=== PATIENT | female | born 1995 | race Caucasian/White ===

== ENCOUNTER 2016-12-31 21:41 | Emergency (ER) | payer BC, MEDICAID ==
--- NOTE | 2016-12-31 21:56 | ED Physician Documentation ---
PD HPI HEAD INJURY - Stated complaint Stated Complaint: ETOH - Chief complaint Chief Complaint: Neuro - History obtained from History obtained from: Patient, Family - History of Present Illness Mechanism of head injury: Fell Where head injury occurred: Other (she was at music event with her parents and wine/alcohol was served there. Patient had several drinks after getting there, after getting off from work. Her parents did not realize how many drinks she had , but noted that the patient seemed to be acting inebriated, was wobbly walking , and then fell backward, striking back of head. Brief LOC and patient then vomited couple of times, was hard to rouse. Parents concerned between overly intoxicated and potential head injury, so brought her here for evaluation.) Timing - onset: How many hours ago (just the past 1-2 hours while at music event ), Today Quality of pain: Aching Associated symptoms: LOC, Nausea / vomiting Symptoms worsen with: Palpation Contributing factors: Intoxicated. No: Anticoagulated Similar symptoms before: Has not had sx before (parents and patient say she has not had more than a drink or two since turning 21. This was first time she had had several drinks.) Recently seen: Not recently seen Review of Systems Constitutional: denies: Fever Nose: denies: Rhinorrhea / runny nose, Congestion Throat: denies: Sore throat Respiratory: denies: Cough GI: denies: Diarrhea Skin: denies: Abrasion (s), Laceration (s) Musculoskeletal: denies: Neck pain, Back pain Neurologic: denies: Focal weakness PD PAST MEDICAL HISTORY - Past Medical History Neuro: None Endocrine/Autoimmune: None - Present Medications Home Medications: Ambulatory Orders Medication Instructions Recorded Confirmed No Known Home Medications [No 12/31/16 12/31/16 Known Home Medications] - Allergies Allergies/Adverse Reactions: Allergies Allergy/AdvReac Type Severity Reaction Status Date / Time No Known Drug Allergies Allergy Verified 12/31/16 21:55 PD ED PE NORMAL - Vitals Vital signs reviewed: Yes - General General: Alert and oriented X 3, Well developed/nourished - HEENT HEENT: Pharynx benign, Dentition benign, Other (mild tenderness back of head without swelling nor deformity) - Neck Neck: Supple, no meningeal sign, No adenopathy - Cardiac Cardiac: RRR, No murmur - Respiratory Respiratory: Clear bilaterally - Abdomen Abdomen: Soft, Non tender - Back Back: No spinal TTP - Derm Derm: Normal color, Warm and dry - Extremities Extremities: No tenderness to palpate, Normal ROM s pain - Neuro Neuro: distributor operator 2-12 intact, No motor deficit, Other (slurred speech. Rousable to tactile stimulus. Able to follow commands but rather incoordinate. ) Results - Vitals Vitals: Vital Signs - 24 hr 12/31/16 12/31/16 12/31/16 21:53 21:59 22:56 Temperature 36.0 C L 36.9 C Heart Rate 92 61 88 Respiratory 18 16 15 Rate Blood Pressure 130/88 H 107/73 108/69 O2 Saturation 100 100 100 Oxygen O2 Source Room air - Labs Labs: Laboratory Tests 12/31/16 22:17 Sodium 140 Potassium 3.4 L Chloride 108 Carbon Dioxide 23 Anion Gap 9.0 BUN 10 Creatinine 0.6 Estimated GFR (MDRD) 126 Glucose 94 Calcium 8.9 Total Bilirubin 0.2 AST 16 ALT 13 Alkaline Phosphatase 47 Total Protein 7.2 Albumin 4.1 Globulin 3.1 Albumin/Globulin Ratio 1.3 Lipase 22 Ethyl Alcohol 269.1 - Rads (name of study) head CT Radiology: Prelim report reviewed (no acute process. ) PD MEDICAL DECISION MAKING - ED course Complexity details: reviewed results, re-evaluated patient (well intoxicated initially but improves to rousable and conversant while in the ED (still inebriated) but parents feel comfortable having her home and she prefers home to sleep. She seems to be past the peak of inebriation and would not expect impaired gag reflex/etc from this point. ), considered differential, d/w patient , d/w family (parents) Departure - Departure Disposition: 01 Home, Self Care Clinical Impression: Accidental fall Qualifiers: Encounter type: initial encounter Qualified Code(s): W19.XXXA - Unspecified fall, initial encounter Head contusion Qualifiers: Encounter type: initial encounter Contusion of head detail: scalp Qualified Code(s): S00.03XA - Contusion of scalp, initial encounter Alcohol intoxication Qualifiers: Complication of substance-induced condition: uncomplicated Qualified Code(s): F10.120 - Alcohol abuse with intoxication, uncomplicated Condition: Stable Record reviewed to determine appropriate education?: Yes Instructions: ED Alcohol Intoxication, ED Contusion Scalp Comments: Drink lots of fluids the next day or 2. Tylenol or ibuprofen if needed for pains. If you have some lightheadedness or headache over the next couple of days, that might be from hitting her head/mild concussion. This should clear over a few days. Recheck if not better over the next several days. Avoid excess alcohol. Discharge Date/Time: 12/31/16 23:38
[2016-12-31] MEDS ORDERED: SODIUM CHLORIDE 0.9% 1,000 ML IV ONE (22:09)
[2016-12-31] MEDS ORDERED: ONDANSETRON 4 MG/2 ML VIAL IVP STA (22:09)
[2016-12-31] MEDS ORDERED: KETOROLAC 60 MG/2 ML VIAL IVP STA (22:09)
[2016-12-31] MEDS ORDERED: KETOROLAC 30 MG/ML VIAL ONE (22:23)
[2016-12-31] MEDS ORDERED: ONDANSETRON 4 MG/2 ML VIAL ONE (22:23)
[2016-12-31] MEDS ORDERED: SODIUM CHLORIDE FLUSH 0.9% 10 ML SYRINGE IVP ONE (22:23)
[2016-12-31 22:39] LABS: ALBUMIN/GLOBULIN RATIO 1.3 (1.0-2.2); BILIRUBIN,TOTAL 0.2 mg/dL (0.2-1.0); CALCIUM 8.9 mg/dL (8.5-10.3); CREATININE 0.6 mg/dL (0.4-1.0); POTASSIUM 3.4 mmol/L (3.5-5.0); TOTAL PROTEIN 7.2 g/dL (6.7-8.2)
[2016-12-31 22:57] VITALS: BP 108/69
--- NOTE | 2016-12-31 23:04 | CT Preliminary Report ---
Exam: CT Head W/O IMPRESSION: Normal head CT. [facility] SITE ID: [id number]
--- NOTE | 2016-12-31 23:07 | CT Report ---
EXAM: CT HEAD EXAM DATE: 12/31/2016 10:51 PM. CLINICAL HISTORY: Fell and hit back of head. COMPARISON: None. TECHNIQUE: Multiaxial CT images were obtained from the foramen magnum to the vertex. IV contrast: Non e. Reformats: Coronal. In accordance with CT protocol optimization, one or more of the following dose reduction techniques w ere utilized for this exam: automated exposure control, adjustment of mA and/or KV based on patient s ize, or use of iterative reconstructive technique. FINDINGS: Parenchyma: No intraparenchymal hemorrhage. No evidence of mass, midline shift, or CT findings of inf arction. Patricia-white differentiation is distinct. Extraaxial Spaces: Normal for age. No subdural or epidural collections identified. Ventricles: Normal in size and position. Sinuses: Imaged paranasal sinuses, orbits, and mastoids show no significant abnormality. Bones: No evidence of fracture or calvarial defect. Other: There is a posterior parietal scalp contusion.. IMPRESSION: Normal head CT. [facility] Referring Provider Line: [phone] SITE ID: [id number]
== END 2016-12-31 23:38 | disposition home or self-care (01) ==
LOC: ED 21:41
DX: S00.03XA Contusion of scalp, initial encounter (principal); W01.0XXA Fall on same level from slipping, tripping and stumbling without subsequent striking against object, initial encounter; Y92.89 Other specified places as the place of occurrence of the external cause; F10.129 Alcohol abuse with intoxication, unspecified
CPT/HCPCS: 36415; 70450; 80053; 80320; 83690; 96374; 96375; 99283; 99284